=== PATIENT | male | born 1940 | race Caucasian/White ===

== ENCOUNTER 2017-11-19 21:32 | Inpatient (IN) | payer OTHER, MEDICARE ==
[~2017-11-19] VITALS: Ht 182.9 cm; Wt 70.8 kg
[~2017-11-19 21:32] MED LIST: ASPI-515 PO
[2017-11-19] MEDS ORDERED: TAMS-11 PO (21:41)
[2017-11-19 22:07] LABS: MEAN CORPUSCULAR HEMOGLOBIN 31.3 pg (27.5-34.5); MEAN CORPUSCULAR HGB CONC 33.6 g/dL (33.2-36.2); MEAN CORPUSCULAR VOLUME 93.2 fL (81-97); MEAN PLATELET VOLUME 10.7 fL (7.4-10.4); PLATELET COUNT 208 x10^3/uL (130-400); RED BLOOD COUNT 4.21 x10^6/uL (4.38-5.82); RED CELL DISTRIBUTION WIDTH 13.4 % (9.4-14.8)
[2017-11-19 22:17] LABS: INTERNATIONAL NORMALIZED RATIO 0.96 (0.93-1.1)
[2017-11-19 22:21] LABS: ALANINE AMINOTRANSFERASE 25 U/L (12-78); ALBUMIN 3.7 g/dL (3.4-5.0); ANION GAP 9 mmol/L (5-15); CALCIUM 8.7 mg/dL (8.5-10.1); CHLORIDE 109 mmol/L (98-107); CREATININE 1.46 mg/dL (0.7-1.3); MD YES
[2017-11-19 22:23] LABS: BAND#(MANUAL) 0.88 x10^3/uL; BANDS%(MANUAL) 5 % (0-7); LYMPH#(MANUAL) 0.18 x10^3/uL (1-3.4); LYMPHS% (MANUAL) 1 % (22-44); MONOS#(MANUAL) 0.35 x10^3/uL (0.3-2.7); MONOS% (MANUAL) 2 % (2-9); SEG#(MANUAL) 16.19 x10^3/uL (1.8-6.8); SEGS% (MANUAL) 92 % (42-75)
[2017-11-19 22:25] LABS: <PLATELET ESTIMATE> ADEQUATE; <RBC MORPHOLOGY> NORMAL; ALKALINE PHOSPHATASE 48 U/L (45-117); BILIRUBIN,TOTAL 0.9 mg/dL (0.2-1.0); TOTAL PROTEIN 7.2 g/dL (6.4-8.2); TROPONIN I < 0.015 ng/mL (0.000-0.045)
[2017-11-19 22:26] LABS: <PLT MORPHOLOGY> NORMAL PLT MORPH
[2017-11-19] MEDS ORDERED: ACETAMINOPHEN 325 MG TABLET ONE (23:35)
[2017-11-19 23:50] LABS: MICROSCOPIC NOT IND
[2017-11-19 23:52] LABS: CULTURE INDICATED? NO
[2017-11-20] MEDS ORDERED: ACETAMINOPHEN 325 MG TABLET PO ONE
[2017-11-20] MEDS ORDERED: SODIUM CHLORIDE 0.9% 1,000 ML IV SCH (01:01)
[2017-11-20 01:57] VITALS: BP 96/62
[2017-11-20] MEDS ORDERED: KETOROLAC 30 MG/1 ML IVPush ONE (02:00)
[2017-11-20] MEDS ORDERED: LIDODERM 5% PATCH TD ONE (02:00)
[2017-11-20 02:34] VITALS: BP 86/57
[2017-11-20 06:08] LABS: MEAN CORPUSCULAR HEMOGLOBIN 31.3 pg (27.5-34.5); MEAN CORPUSCULAR HGB CONC 33.6 g/dL (33.2-36.2); MEAN CORPUSCULAR VOLUME 93.2 fL (81-97); MEAN PLATELET VOLUME 11.1 fL (7.4-10.4); PLATELET COUNT 189 x10^3/uL (130-400); RED BLOOD COUNT 3.59 x10^6/uL (4.38-5.82); RED CELL DISTRIBUTION WIDTH 13.3 % (9.4-14.8)
[2017-11-20 06:27] LABS: CHLORIDE 111 mmol/L (98-107)
[2017-11-20 06:58] VITALS: BP 103/68
[2017-11-20 06:58] LABS: ANION GAP 9 mmol/L (5-15); CALCIUM 8.3 mg/dL (8.5-10.1); CREATININE 1.71 mg/dL (0.7-1.3); THYROID STIMULATING HORMONE 0.736 mIU/L (0.358-3.740)
[2017-11-20 07:01] LABS: MD YES
[2017-11-20 07:02] LABS: <PLATELET ESTIMATE> ADEQUATE; <PLT MORPHOLOGY> NORMAL PLT MORPH; <RBC MORPHOLOGY> NORMAL; LYMPH#(MANUAL) 3.58 x10^3/uL (1-3.4); LYMPHS% (MANUAL) 20 % (22-44); MONOS#(MANUAL) 0.72 x10^3/uL (0.3-2.7); MONOS% (MANUAL) 4 % (2-9); SEGS% (MANUAL) 76 % (42-75)
[2017-11-20] MEDS: ASPIRIN 81 MG TABLET EC PO SCH (09:31)
[2017-11-20] MEDS: ACETAMINOPHEN 325 MG TABLET PO PRN (11:54)
[2017-11-20 13:39] VITALS: BP 97/57
[2017-11-20 20:05] VITALS: BP 115/68
[2017-11-21] MEDS: SODIUM CHLORIDE 0.9% 1,000 ML IV SCH ×2 (00:58→08:18)
[2017-11-21] MEDS ORDERED: LIDODERM 5% PATCH TD ONE (01:00)
[2017-11-21 01:14] VITALS: BP 157/81
[2017-11-21] MEDS: ACETAMINOPHEN 325 MG TABLET PO PRN (02:33)
[2017-11-21 05:54] LABS: CHLORIDE 114 mmol/L (98-107)
[2017-11-21 06:03] LABS: BASOPHILS # (AUTO) 0.08 x10^3/uL (0-0.1); BASOPHILS % (AUTO) 1 % (0-1); EOSINOPHILS # (AUTO) 0.26 x10^3/uL (0-0.4); EOSINOPHILS % (AUTO) 3 % (1-7); LYMPHOCYTES # (AUTO) 1.14 x10^3/uL (1-3.4); LYMPHOCYTES % (AUTO) 11 % (22-44); MD NO; MEAN CORPUSCULAR HEMOGLOBIN 31.3 pg (27.5-34.5); MEAN CORPUSCULAR HGB CONC 33.7 g/dL (33.2-36.2); MEAN CORPUSCULAR VOLUME 92.8 fL (81-97); MEAN PLATELET VOLUME 11.1 fL (7.4-10.4); MONOCYTES # (AUTO) 0.64 x10^3/uL (0.2-0.8); MONOCYTES % (AUTO) 6 % (2-9); NEUTROPHILS % (AUTO) 80 % (42-75); PLATELET COUNT 164 x10^3/uL (130-400); RED BLOOD COUNT 3.54 x10^6/uL (4.38-5.82); RED CELL DISTRIBUTION WIDTH 13.3 % (9.4-14.8)
[2017-11-21 06:14] LABS: ALANINE AMINOTRANSFERASE 20 U/L (12-78); ALBUMIN 2.8 g/dL (3.4-5.0); ALKALINE PHOSPHATASE 42 U/L (45-117); ANION GAP 9 mmol/L (5-15); BILIRUBIN,TOTAL 0.7 mg/dL (0.2-1.0); CALCIUM 8.1 mg/dL (8.5-10.1); FREE T4 (FREE THYROXINE) 1.13 ng/dL (0.76-1.46); TOTAL PROTEIN 5.8 g/dL (6.4-8.2)
[2017-11-21 07:35] VITALS: BP 136/74
[2017-11-21] MEDS: ASPIRIN 81 MG TABLET EC PO SCH (08:16)
== END 2017-11-21 13:36 | disposition home or self-care (01) | DRG 684 ==
LOC: ED 23:47 → EDIP 11-20 00:13 → SUATTDRO 11-20 00:31 → 4EST 11-20 01:14
PROVIDERS: ADMIT Hospitalist; ATTEND Hospitalist
DX: N17.9 Acute kidney failure, unspecified (principal); E86.0 Dehydration; M48.02 Spinal stenosis, cervical region; D64.9 Anemia, unspecified; R40.4 Transient alteration of awareness; D72.829 Elevated white blood cell count, unspecified; I25.10 Atherosclerotic heart disease of native coronary artery without angina pectoris; J32.2 Chronic ethmoidal sinusitis; N18.9 Chronic kidney disease, unspecified; N40.0 Benign prostatic hyperplasia without lower urinary tract symptoms; Z95.1 Presence of aortocoronary bypass graft; Z86.13 Personal history of malaria; Z88.1 Allergy status to other antibiotic agents
CPT/HCPCS: 36415; 70450; 70551; 71045; 72110; 72125; 76770; 80048; 80053; 80307; 81003; 82140; 83735; 84439; 84443; 84484; 85025; 85610; 85651; 85730; 86140; 93005; 95819; 99285; J1885; 92523-GN; J7030

== ENCOUNTER 2019-11-11 10:53 | Emergency (ER) | payer OTHER, MEDICARE ==
[~2019-11-11] VITALS: Ht 180.3 cm; Wt 55.6 kg
[~2019-11-11 10:53] MED LIST changes: +TAMS-11 PO
[2019-11-11 13:52] VITALS: BP 155/79
[2019-11-11] MEDS ORDERED: HYDROcodone/APAP 5/325 TABLET PO ONE (14:00)
[2019-11-11] MEDS ORDERED: HYDROcodone/APAP 5/325 TABLET ONE (14:11)
--- NOTE | 2019-11-11 14:16 | NUR ---
PT MEDICATED PER EMAR. GIVEN IS EDUCAITON.
--- NOTE | 2019-11-11 14:29 | NUR ---
Patient given discharge instructions and they have confirmed that they understand the instructions. Patient ambulatory with steady gait.
== END 2019-11-11 14:31 | disposition home or self-care (01) ==
LOC: ED 14:05
DX: S22.42XA Multiple fractures of ribs, left side, initial encounter for closed fracture (principal); W01.0XXA Fall on same level from slipping, tripping and stumbling without subsequent striking against object, initial encounter; Y93.89 Activity, other specified; Y92.009 Unspecified place in unspecified non-institutional (private) residence as the place of occurrence of the external cause; Y99.8 Other external cause status
CPT/HCPCS: 99283